=== PATIENT | male | born 2000 | race Caucasian/White ===

== ENCOUNTER 2021-04-01 12:41 | Emergency (ER) | payer MEDICAID ==
[~2021-04-01] VITALS: Ht 170.2 cm; Wt 50.0 kg
[~2021-04-01 12:41] MED LIST: PYR200 PO; SULF1TAB48 PO
[2021-04-01] MEDS ORDERED: SODIUM CHLORIDE 0.9% 1,000 ML IV ONE (13:30)
[2021-04-01] MEDS ORDERED: AMOXICILLIN 500 MG CAPSULE PO ONE (14:45)
[2021-04-01 14:56] LABS: BASOPHILS % 0.3 % (0.0-2.0); EOSINOPHILS % 0.1 % (0.0-5.0); HEMATOCRIT. 40.3 % (42.0-52.0); HEMOGLOBIN. 13.8 g/dL (14.0-18.0); LYMPHOCYTES % 8.6 % (20.0-50.0); MEAN CORPUSCULAR HEMOGLOBIN 27.8 pg (28.0-32.0); MEAN CORPUSCULAR VOLUME 81.1 fL (80.0-94.0); MEAN PLATELET VOLUME 7.7 fl (7.4-10.4); MONOCYTES % 7.2 % (2.0-8.0); NEUTROPHILS % 83.8 % (40.0-76.0); PLATELET 349 x1000/uL (130-400); RED BLOOD CELL COUNT 4.98 mill/uL (4.7-6.1); RED CELL DISTRIBUTION WIDTH 13.9 % (11.6-14.6)
[2021-04-01 15:04] LABS: CHLORIDE 96 mEq/L (98-107)
[2021-04-01] MEDS ORDERED: AMOXICILLIN 500 MG CAPSULE PO NR (15:30)
[2021-04-01] MEDS ORDERED: POTASSIUM CHLORIDE 20MEQ TABLET SR PO ONE (15:30)
[2021-04-01] MEDS ORDERED: AMOX-424 MT (15:55)
[2021-04-01] MEDS ORDERED: IBUP-2028 MT (15:55)
[2021-04-01] MEDS ORDERED: TOPUD PO (15:56)
[2021-04-01 16:20] VITALS: BP 116/71
== END 2021-04-01 16:21 | disposition home or self-care (01) ==
LOC: ER 12:48
DX: J18.9 Pneumonia, unspecified organism (principal); R50.9 Fever, unspecified; R11.2 Nausea with vomiting, unspecified; Z20.822 Contact with and (suspected) exposure to COVID-19
CPT/HCPCS: 36415; 71045; 80053; 85025; 87426; 93005; 96360; 99285; J7030; Z7610

== ENCOUNTER 2022-02-03 08:24 | Emergency (ER) | payer MEDICAID, OTHER ==
[~2022-02-03] VITALS: Ht 175.3 cm; Wt 61.0 kg
[~2022-02-03 08:24] MED LIST changes: +AMOX-424 MT; +IBUP-2028 MT; +TOPUD PO
[2022-02-03 08:41] VITALS: BP 117/69
== END 2022-02-03 12:19 | disposition home or self-care (01) ==
LOC: ER 08:24
DX: J02.9 Acute pharyngitis, unspecified (principal)
CPT/HCPCS: 87426; 99283